=== PATIENT | male | born 1955 | race Caucasian/White ===

== ENCOUNTER 2020-07-13 12:35 | Emergency (ER) | payer MEDICARE ==
[~2020-07-13] VITALS: Ht 177.8 cm; Wt 70.7 kg
--- NOTE | 2020-07-13 12:55 | NUR ---
PT AMBULATED BACK TO ROOM AT THIS TIME. PT BIB VIA POV. PER PT HE HAS HAD VISIBLE BLOOD IN URINE X 3 DAYS WELL R FLANK PAIN X 3WEEKS. PT STATES PAIN CURRENTLY IS 2/10. PT REPORTS HX OF BPH AND WAS STARTED ON FLOMAX LAST WEEK. PT RESTING IN [facility], MONITORING IN PLACE, [facility] AT THIS TIME, AT BEDSIDE, [place].
[2020-07-13 14:03] LABS: BASOPHILS % (AUTO) 1 % (0-1); EOSINOPHILS % (AUTO) 2 % (1-7); LYMPHOCYTES % (AUTO) 15 % (22-44); MEAN CORPUSCULAR HEMOGLOBIN 31.8 pg (27.5-34.5); MEAN PLATELET VOLUME 8.1 fL (7.4-10.4); MONOCYTES % (AUTO) 10 % (2-9); NEUTROPHILS % (AUTO) 73 % (42-75); PLATELET COUNT 359 x10^3/uL (130-400); RED BLOOD COUNT 4.45 x10^6/uL (4.38-5.82); RED CELL DISTRIBUTION WIDTH 12.8 % (9.4-14.8)
[2020-07-13 14:14] LABS: ALANINE AMINOTRANSFERASE 23 U/L (12-78); ALBUMIN 4.1 g/dL (3.4-5.0); ANION GAP 3 mmol/L (5-15); CALCIUM 9.7 mg/dL (8.5-10.1); CHLORIDE 108 mmol/L (98-107); CREATININE 1.64 mg/dL (0.7-1.3)
[2020-07-13 14:17] LABS: ALKALINE PHOSPHATASE 60 U/L (45-117); BILIRUBIN,TOTAL 0.4 mg/dL (0.2-1.0); TOTAL PROTEIN 7.3 g/dL (6.4-8.2)
[2020-07-13 14:30] LABS: MD NO
[2020-07-13 16:08] LABS: MICROSCOPIC AUTO
[2020-07-13 17:47] VITALS: BP 129/81
--- NOTE | 2020-07-13 17:48 | NUR ---
PT RESTING IN [facility], AT BEDSIDE, [facility] AT THIS TIME, AWAITING UROLOGY TO COME SEE PT.
[2020-07-14] MEDS ORDERED: TAMS-11 PO (11:10)
[2020-07-14] MEDS ORDERED: FAMO-79 PO (11:10)
== END 2020-07-13 18:38 | disposition home or self-care (01) ==
LOC: ED 14:17
DX: N13.2 Hydronephrosis with renal and ureteral calculous obstruction (principal)
CPT/HCPCS: 36415; 74176; 80053; 81001; 85025; 87086; 99284

== ENCOUNTER 2020-07-14 10:33 | Day surgery (SDC) | payer MEDICARE ==
[~2020-07-14] VITALS: Ht 177.8 cm; Wt 69.7 kg
[2020-07-14] MEDS ORDERED: OMNIPAQUE 350 MG/ML, 50 ML BOTTLE ONE (10:52)
[2020-07-14 11:01] VITALS: BP 106/65
[2020-07-14] MEDS ORDERED: TAMS-11 PO (11:10)
[2020-07-14] MEDS ORDERED: FAMO-79 PO (11:10)
[2020-07-14] MEDS ORDERED: CHLORHEXIDINE 15 ML UDC ONE (11:14)
[2020-07-14] MEDS ORDERED: LACTATED RINGERS 1,000 ML IV SCH (11:30)
[2020-07-14] MEDS ORDERED: CHLORHEXIDINE 15 ML UDC MM ONE (11:30)
[2020-07-14 11:47] LABS: INTERNATIONAL NORMALIZED RATIO 1.02 (0.93-1.1); PROTHROMBIN TIME 10.9 Seconds (9.6-11.5)
[2020-07-14] MEDS ORDERED: CEFAZOLIN 1,000 MG ONE (11:52)
[2020-07-14] MEDS ORDERED: SUCCINYLCHOLINE 20 MG/ML, 10ML ONE (11:52)
[2020-07-14] MEDS ORDERED: MIDAZOLAM 1 MG/ML, 2ML ONE (11:52)
[2020-07-14] MEDS ORDERED: FENTANYL PF 250 MCG/5ML ONE (11:53)
[2020-07-14] MEDS ORDERED: PROPOFOL 10 MG/ML, 20ML ONE (12:00)
[2020-07-14] MEDS ORDERED: DEXAMETHASONE 4 MG/ML, 1ML ONE (12:00)
[2020-07-14] MEDS ORDERED: ROCURONIUM 10MG/ML,5ML ONE (12:00)
[2020-07-14] MEDS ORDERED: EPHEDRINE 50 MG/ML, 1ML ONE (12:01)
[2020-07-14] MEDS ORDERED: HYDROmorphone 1 MG/ML, 1ML INJ IVPush PRN (12:30)
[2020-07-14] MEDS ORDERED: FENTANYL PF 100 MCG/2ML IV PRN (12:30)
[2020-07-14] MEDS ORDERED: ONDANSETRON 2MG/ML, 2ML IVPush PRN (12:30)
[2020-07-14] MEDS ORDERED: hydrALAzine 20 MG/ML, 1ML IV PRN (12:30)
[2020-07-14] MEDS ORDERED: LABETALOL 5MG/ML, 20ML IV PRN (12:30)
[2020-07-14] MEDS ORDERED: ALBUTEROL SULFATE 2.5 MG/3 ML NPPB PRN (12:30)
[2020-07-14] MEDS ORDERED: ACETAMINOPHEN 325 MG TABLET PO PRN (12:30)
[2020-07-14] MEDS ORDERED: OXYcodone 5 MG/5 ML ORAL.SOL UDC PO PRN (12:30)
[2020-07-14] MEDS ORDERED: DIPHENHYDRAMINE 50 MG/ML, 1ML IVPush PRN (12:30)
[2020-07-14] MEDS ORDERED: PROMETHAZINE 12.5 MG SUPP PR PRN (12:30)
[2020-07-14] MEDS ORDERED: PROMETHAZINE 25 MG/ML, 1ML IVPush PRN (12:30)
[2020-07-14] MEDS ORDERED: MEPERIDINE/PF 25MG/0.5ML IVPush PRN (12:30)
[2020-07-14] MEDS ORDERED: MIDAZOLAM 1 MG/ML, 2ML IV PRN (12:30)
[2020-07-14] MEDS ORDERED: DIAZEPAM 5 MG/ML, 2ML IVPush PRN (12:30)
[2020-07-14] MEDS ORDERED: EPHEDRINE 50 MG/ML, 1ML IVPush PRN (12:30)
[2020-07-14] MEDS ORDERED: ONDANSETRON 2MG/ML, 2ML ONE (13:51)
[2020-07-14] MEDS ORDERED: OPIUM/BELLADONNA SUPP.RECT 16.2-30 MG PR PRN (14:00)
[2020-07-14] MEDS ORDERED: PHENAZOPYRIDINE 200 MG TABLET PO ONE (14:00)
== END 2020-07-14 15:25 | disposition home or self-care (01) ==
LOC: OUT 10:33
PROVIDERS: ATTEND Urology
DX: N20.1 Calculus of ureter (principal); N40.0 Benign prostatic hyperplasia without lower urinary tract symptoms; K21.9 Gastro-esophageal reflux disease without esophagitis; Z20.822 Contact with and (suspected) exposure to COVID-19; Z79.01 Long term (current) use of anticoagulants; Z79.899 Other long term (current) drug therapy; Z87.442 Personal history of urinary calculi
CPT/HCPCS: 36415; 52356; 74018; 85610; 87635; 93005; C1758; C1769; C2617; J0330; J0690; J1100; J2250; J2405; J2704; J3010; J7120; Q9967; 76000

== ENCOUNTER → 2020-07-27 | Outpatient (CLI) | payer MEDICARE ==
[~2020-07-27] MED LIST: FAMO-79 PO; TAMS-11 PO
== END | disposition home or self-care (01) ==
LOC: CFH 10:47
PROVIDERS: ATTEND Urology
DX: N20.0 Calculus of kidney (principal)
CPT/HCPCS: 74018